=== PATIENT | female | born 1970 | race Caucasian/White ===

== ENCOUNTER → 2022-04-28 13:22 | Outpatient (BNVA) | payer MEDICAID, SELFPAY | PROVIDERS: Visit Provider Internal Medicine Cardiovascular Disease | DX: R00.2 Palpitations (principal); I10 Essential (primary) hypertension; E78.5 Hyperlipidemia, unspecified; F17.200 Nicotine dependence, unspecified, uncomplicated; I25.10 Atherosclerotic heart disease of native coronary artery without angina pectoris; Z86.73 Personal history of transient ischemic attack (TIA), and cerebral infarction without residual deficits | CPT/HCPCS: 93005; 93225; 99204 ==

== ENCOUNTER 2022-09-02 10:30 | Outpatient (CLI) | payer MEDICAID, SELFPAY ==
--- NOTE | 2022-09-02 10:41 | MM_ITS ---
WS: [id number] DIAGNOSTIC BILATERAL DIGITAL BREAST TOMOSYNTHESIS MAMMOGRAPHY WITH CAD LEFT breast ultrasound, limited HISTORY: Follow-up LEFT breast masses. COMPARISON: 03/17/2021, 09/20/2018 TECHNIQUE: Bilateral craniocaudad, mediolateral oblique, and mediolateral views are submitted with to mosynthesis and SM. Spot views LEFT CC and MLO. Computer aided detection utilized. Breast composition: The breasts are heterogeneously dense, which may obscure small masses. Bilateral breast asymmetries are stable. Bilateral benign calcifications. Ultrasound will be performed of the p reviously described nodules in the LEFT breast. LEFT breast ultrasound, limited. At 10:00 no abnormality is identified. No skin thickening or mass. The complex cystic nodule at 6:00 is not identified. There are shadowing calcifications. No masses. MM/[place] [id number] IMPRESSION: BI-RADS: 2-Benign FOLLOW UP: 1 Year Follow-up Return to annual screening mammography. Stable mammography. No ultrasound abnor mality LEFT breast.
== END 2022-09-02 10:31 | disposition home or self-care (01) ==
LOC: RAD 10:31
PROVIDERS: PCP Family Medicine; Visit Provider Family Medicine
DX: N60.02 Solitary cyst of left breast (principal)
CPT/HCPCS: 76642; 77062; G0279

== ENCOUNTER 2022-09-24 07:08 | Outpatient (CLI) | payer MEDICAID, SELFPAY ==
--- NOTE | 2022-09-24 | CT_ITS ---
WS: [id number] CT NECK TECHNIQUE: Contrast-enhanced CT of the neck with coronal and sagittal reformatted images. CLINICAL INFORMATION: DYSPHAGIA COMPARISON: None. DLP: 273.[address] scans at [facility] use at least one of these dose optimization techniques: automated e xposure control; mA and/or kV adjustment per patient size (includes targeted exams where dose is matc hed to clinical indication); or iterative reconstruction. FINDINGS: Normal posterior nasopharynx. Normal parapharyngeal fat. Parotid glands are normal. Normal submandibu lar glands. Tongue base is normal in appearance. Normal palatine tonsils. No evidence of supraglottic or glottic mass. Normal subglottic airway. Mastoid air cells and paranasal sinuses are well aerated. No cervical lymphadenopathy. No other signi ficant findings. CT/CT neck w con* [id number] IMPRESSION: 1. No acute neck findings 2. Normal salivary glands. 3. Normal posterior nasopharynx and parapharyngeal fat. 4. No cervical lymphadenopathy. 5. Partially visualized paranasal sinuses and mastoid air cells are well aerat ed.
[2022-09-24] MEDS: iohexol 350 mg/mL 500 mL Btl (per mL) IV (07:43)
== END 2022-09-24 07:09 | disposition home or self-care (01) ==
PROVIDERS: PCP Family Medicine; Visit Provider Specialist
DX: R13.10 Dysphagia, unspecified (principal)
CPT/HCPCS: 70491; Q9967

== ENCOUNTER 2022-09-28 07:32 | Outpatient (CLI) | payer MEDICAID, SELFPAY ==
--- NOTE | 2022-09-28 07:41 | FL_ITS ---
WS: [id number] MODIFIED BARIUM SWALLOW HISTORY: Other dysphagia FLUOROSCOPY TIME: 1min [id number] # of spot films: 1 Modified barium swallow was performed by the speech pathologist. Fluoroscopy was provided with the pa tient in a lateral projection. Multiple food consistencies were provided. All food consistencies were swallowed without difficulty. No aspiration or laryngeal penetration. Bar ium tablet was also swallowed without difficulty. FL/FL barium swallow modifd [id number] IMPRESSION: No aspiration or laryngeal penetration. Please see speech therapist report also for recommendations.
== END 2022-09-28 07:33 | disposition home or self-care (01) ==
LOC: RAD 07:35
PROVIDERS: PCP Family Medicine; Visit Provider Specialist
DX: R13.10 Dysphagia, unspecified (principal)
CPT/HCPCS: 74230; 92611

== ENCOUNTER 2022-10-07 08:10 | Outpatient (CLI) | payer MEDICAID, SELFPAY ==
--- NOTE | 2022-10-07 08:19 | FL_ITS ---
WS: [id number] FL barium swallow [id number] REASON FOR EXAM: DYSPHAGIA FLUOROSCOPY TIME: 1min [id number] # OF SPOT FILMS: 8 FINDINGS: The swallowing of barium was evaluated in the upright AP and lateral projections and also of the pron e ESTRADA position. Esophagus was evaluated from the oropharynx to the gastric fundus. Multiple rapid sequence spot films were obtained. Oropharynx and cervical esophagus are normal. In the thoracic esophagus there are intermittent tertiary contractions with retention of barium in th e upper thoracic esophagus. No significant reflux identified. Gastroesophageal junction is normal without narrowing or significant hiatal hernia. FL/FL barium swallow [id number] IMPRESSION: Minimal esophageal dysmotility as above.
== END 2022-10-07 08:11 | disposition home or self-care (01) ==
LOC: RAD 08:12
PROVIDERS: PCP Family Medicine; Visit Provider Specialist
DX: R13.10 Dysphagia, unspecified (principal)
CPT/HCPCS: 74220

== ENCOUNTER 2022-12-03 10:31 | Observation (INO) | payer MEDICAID, SELFPAY ==
[2022-12-03] VITALS (20 sets, daily range): BP systolic 78–129; BP diastolic 39–97; PULSE 55–107; RESP 11–26; TEMP 36.8; O2SAT 90–100; BMI 38.2
--- NOTE | 2022-12-03 10:40 | XR_ITS ---
WS: [id number] Portable AP upright chest, 12/03/2022 Clinical Data: dyspnea/cough Comparison: None. Findings: No nodules, masses or effusions are seen. The heart is the upper limits of normal. The pulm onary vascularity is not increased. No pneumonia or pneumothorax is seen. Monitor leads are on the ch est wall. XR/XR chest 1V portable [id number] Impression: Mild cardiomegaly.
--- NOTE | 2022-12-03 10:42 | ED_ITS ---
HPI - General Adult General: Chief complaint: General Medical Stated complaint: LOW BP/ POSSIBLE OVERDOSE Time Seen by Provider: 12/03/22 10:35 Source: patient Mode of arrival: ambulatory History of Present Illness: 52-year-old female presents emergency room with hypotension and bradycardia. She was at home that changed her medications recently she is awake and alert when she arrives here she does not think she took too much of any of her medications she denies any suicidal or suicidality. Onset (ago): minute(s) Severity: mild Relieving factors: none Exacerbating factors: none Associated symptoms: Deny chest pain, confusion, cough, diaphoresis, decreased appetite, dyspnea, fevers/chills, headache(s), malaise, nausea, rash, palpitations, seizures, short of breath, syncope, vomiting or weakness Review of Systems Const: Denies: fever(s), chills, malaise or diaphoresis ENMT: Denies: throat pain, ear or mastoid pain, nasal discharge or nasal congestion Card: Denies: chest pain, palpitations or syncope Resp: Denies: dyspnea GI: Denies: abdominal pain, nausea or vomiting : Denies: flank pain, difficulty voiding, dysuria, urinary frequency or urinary urgency Musc: Denies: neck pain or back pain Skin/Breast: Denies: rash Neuro: Denies: headache(s) or confusion PFSH ED PFSH: Medical History Anxiety Arthritis Asthma CAD (coronary artery disease) Emphysema/COPD Fibromyalgia GERD (gastroesophageal reflux disease) Graves' disease with pretibial myxedema History of cervical cancer History of CVA (cerebrovascular accident) HTN (hypertension) Hyperlipidemia Hyperthyroidism Peripheral neuropathy Smoker Surgical History S/P emergency section S/P lumbar laminectomy S/P tubal ligation Family History Grandmother Myocardial infarction Stroke Hypertension Hyperlipidemia Grandfather Myocardial infarction Hypertension Hyperlipidemia Family/Other Myocardial infarction Stroke Hypertension Hyperlipidemia Father Myocardial infarction Hypertension Hyperlipidemia Mother Stroke Hypertension Hyperlipidemia Sister Stroke Hypertension Hyperlipidemia Social History Smoking and tobacco status: current every day smoker cigarettes Packs smoked per day: 1 Years cigarettes smoked: 25 Physical Exam Const: GENERAL APPEARANCE: cooperative and comfortable ORIENTATION/CONSCIOUSNESS: Yes awake, Yes oriented to person, Yes oriented to place and Yes oriented to time HENMT: COMMON NORMALS: normocephalic, atraumatic and hearing grossly normal bilaterally HEAD & SCALP: normocephalic and atraumatic Resp: COMMON NORMALS: normal respiratory effort, No retractions, No use of accessory muscles and clear to auscultation bilaterally AUSCULTATION: clear to auscultation bilaterally Cardio: COMMON NORMALS: regular rate, regular rhythm and No murmurs present (Cardio) RATE: regular rate RHYTHM: regular rhythm GI: COMMON NORMALS: Soft to palpation and No hepatosplenomegaly present AUSCULTATION: Yes normoactive bowel sounds PALPATION: Yes Soft to palpation, No Tenderness to palpation present (GI), No Guarding due to palpation present (GI) and Yes No hepatosplenomegaly present Extremity: COMMON NORMALS: normal to inspection, capillary refill normal, no clubbing, cyanosis or edema, no calf tenderness and no pedal edema Neuro: SENSORIUM/ORIENTATION: Yes oriented to person, Yes oriented to place and Yes oriented to time Skin: COMMON NORMALS: no rashes or lesions noted GENERAL SKIN EXAM: no rashes or lesions noted Course Vital Signs: Vital signs: Vital Signs Temperature 98.2 F 12/03/22 10:32 Pulse Rate 107 H 12/03/22 14:44 Respiratory Rate 14 12/03/22 11:44 Blood Pressure 112/80 12/03/22 13:42 Pulse Oximetry 100 12/03/22 14:44 Oxygen Delivery Me thod Room Air 12/03/22 14:44 MDM - General Adult Medical Decision Making Patient hypotensive and bradycardic on arrival is not having any chest pain. After fluids her pressure improved but when we tested orthostatics she was still very symptomatic and her pressures dropped into the 90s. She continues to be bradycardic. We will place her on observation. Suspect she will benefit from adjustment of medications. Discussed with hospitalist orders written Medical Records I reviewed the patient's medical records. Lab Data I reviewed the patient's lab results. 12/03/22 11:45 12/03/22 11:45 Radiology Impressions Chest X-Ray 12/03/22 10:40 Impression: Mild cardiomegaly. Laboratory Results WBC 7.2 10^3/uL (4.0-10.0) 12/03/22 11:45 RBC 2.66 10^6/uL (4.1-5.3) L 12/03/22 11:45 Hgb 8.3 g/dL (11.5-15.3) L 12/03/22 11:45 Hct 25.5 % (37.0-47.0) L 12/03/22 11:45 MCV 95.9 fl (81-99) 12/03/22 11:45 MCH 31.2 pg (28.0-34.0) 12/03/22 11:45 MCHC 32.5 g/dL (30.0-36.0) 12/03/22 11:45 RDW 14.1 % (12.1-15.1) 12/03/22 11:45 Plt Count 339 10^3/cmm (130-400) 12/03/22 11:45 MPV 10.6 fL (7.4-10.4) H 12/03/22 11:45 Neut % (Auto) 55.2 % 12/03/22 11:45 Lymph % (Auto) 33.7 % 12/03/22 11:45 [place] % (Auto) 7.6 % 12/03/22 11:45 Eos % (Auto) 2.3 % 12/03/22 11:45 Baso % (Auto) 0.4 % 12/03/22 11:45 Neut # (Auto) 3.99 10^3/uL (1.8-7.7) 12/03/22 11:45 Lymph # (Auto) 2.4 10^3/uL (0.8-4.8) 12/03/22 11:45 [place] # (Auto) 0.6 10^3/uL (0.2-0.9) 12/03/22 11:45 Eos # (Auto) 0.2 10^3/uL (0.0-0.8) 12/03/22 11:45 Baso # (Auto) 0.0 10^3/uL (0.0-0.1) 12/03/22 11:45 Nucleated RBC % (auto) 0 % 12/03/22 11:45 Nucleated RBCs # 0.0 /100WBC 12/03/22 11:45 Sodium 136 mmol/L (136-145) 12/03/22 11:45 Potassium 4.0 mmol/L (3.5-5.1) 12/03/22 11:45 Chloride 105 mmol/L (98-107) 12/03/22 11:45 Carbon Dioxide 19 mmol/L (22-29) L 12/03/22 11:45 Anion Gap 16.0 (5-19) 12/03/22 11:45 BUN 20 mg/dL (6-20) 12/03/22 11:45 Creatinine 1.7 mg/dL (0.5-0.9) H 12/03/22 11:45 GFR Calculation 31.4 mL/min (90-130) L 12/03/22 11:45 Glucose 94 mg/dL (65-115) 12/03/22 11:45 Calculated Osmolality 284 mOsm/kg (285-295) L 12/03/22 11:45 Calcium 8.1 mg/dL (8.5-10.5) L 12/03/22 11:45 Total Bilirubin 0.2 mg/dL (0.15-1.2) 12/03/22 11:45 AST 13 U/L (0-32) 12/03/22 11:45 ALT 10 U/L (0-33) 12/03/22 11:45 Alkaline Phosphatase 55 U/L (35-105) 12/03/22 11:45 Troponin T Baseline 8 ng/L (0-10) 12/03/22 11:45 Total Protein 6.3 g/dL (6.6-8.7) L 12/03/22 11:45 Albumin 3.9 g/dL (3.5-5.2) 12/03/22 11:45 Globulin 2.4 g/dL (1.3-4.6) 12/03/22 11:45 Urine Color Yellow (Yellow) 12/03/22 13:10 Urine Appearance Hazy (CLEAR) A 12/03/22 13:10 Urine pH 6 (5-7) 12/03/22 13:10 Ur Specific [place] 1.005 (1.005-1.030) 12/03/22 13:10 Urine Protein Neg (Negative) 12/03/22 13:10 Urine Glucose (UA) Norm (Normal) 12/03/22 13:10 Urine Ketones Negative (Negative) 12/03/22 13:10 Urine Blood 2+ (Negative) H 12/03/22 13:10 Urine Nitrate Negative (Negative) 12/03/22 13:10 Urine Bilirubin Neg (Negative) 12/03/22 13:10 Urine Urobilinogen Neg mg/dL (Negative) 12/03/22 13:10 Ur Leukocyte Esterase Negative (Negative) 12/03/22 13:10 Urine RBC Rare /hpf (0-2) 12/03/22 13:10 Urine WBC Rare /hpf (0-5) 12/03/22 13:10 Ur Squamous Epith Cells Rare /hpf (0-5) 12/03/22 13:10 Amorphous Sediment Not Reportable 12/03/22 13:10 Urine Bacteria 2+ /hpf (NONE) H 12/03/22 13:10 Urine Yeast Trace /hpf 12/03/22 13:10 Discharge Plan Discharge Patient Disposition: Placed in Observation Admit Provider: Franky Moreno Clinical Impression: Hypotension, Bradycardia Coding Level of Care Code ED Director General for Emre Valentine
--- NOTE | 2022-12-03 10:53 | ECG_ITS ---
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 Measurements Intervals [place] Rate: 58 P: 50 NE: 195 QRS: 45 QRSD: 123 T: 40 QT: 449 QTc: 444 Interpretive Statements SINUS BRADYCARDIA MODERATE INTRAVENTRICULAR CONDUCTION DELAY [110+ ms QRS DURATION] No previous ECG available for comparison Electronically Signed On 12-03-2022 14:02:59 CDT by Lul Culver M.D. [id number]
[2022-12-03] MEDS: sodium chloride 0.9% 1,000 ML 999 ML IV (11:44)
[2022-12-03] MEDS: dexamethasone 10 mg/mL INJ IVP (11:44)
[2022-12-03 11:58] LABS: Basophils % 0.4 %; Eosinophils # 0.2 10^3/uL (0.0-0.8); Eosinophils % 2.3 %; Hematocrit 25.5 % (37.0-47.0); Hemoglobin 8.3 g/dL (11.5-15.3); Lymphocytes # 2.4 10^3/uL (0.8-4.8); Lymphocytes % 33.7 %; Mean Corpuscular HGB Conc 32.5 g/dL (30.0-36.0); Mean Corpuscular Hemoglobin 31.2 pg (28.0-34.0); Mean Corpuscular Volume 95.9 fl (81-99); Mean Platelet Volume 10.6 fL (7.4-10.4); Monocytes # 0.6 10^3/uL (0.2-0.9); Monocytes % 7.6 %; Neutrophils # 3.99 10^3/uL (1.8-7.7); Neutrophils % 55.2 %; Nucleated Red Blood Cells % 0 %; Platelet Count 339 10^3/cmm (130-400); Red Blood Count 2.66 10^6/uL (4.1-5.3); Red Cell Distribution Width 14.1 % (12.1-15.1); White Blood Count 7.2 10^3/uL (4.0-10.0)
[2022-12-03 12:17] LABS: Troponin(5th) Baseline 8 ng/L (0-10)
[2022-12-03 12:22] LABS: Alanine Aminotransferase 10 U/L (0-33); Albumin Level 3.9 g/dL (3.5-5.2); Alkaline Phosphatase 55 U/L (35-105); Aspartate Amino Transferase 13 U/L (0-32); Blood Urea Nitrogen 20 mg/dL (6-20); Calcium 8.1 mg/dL (8.5-10.5); Carbon Dioxide 19 mmol/L (22-29); Chloride 105 mmol/L (98-107); Globulin 2.4 g/dL (1.3-4.6); Glomerular Filtration Rate 31.4 mL/min (90-130); Glucose 94 mg/dL (65-115); Osmolality Calculated 284 mOsm/kg (285-295); Sodium 136 mmol/L (136-145); Total Bilirubin 0.2 mg/dL (0.15-1.2); Total Protein 6.3 g/dL (6.6-8.7)
--- NOTE | 2022-12-03 12:25 | PC.PHAR ---
PT STATES SHE TAKES CARE OF HER OWN MEDICATIONS-PT STATES SHE HASNT STARTED HER REPATHA 140MG [id number] STATES SHE IS WAITING FOR A PA TO GET APPROVED-PT STATES SHE TAKES VITAMIN D2 01653 UNITS Q7D AND VITAMIN D3 1000 UNITS DAILY-PT STATES SHE TAKES PROPRANOLOL 40MG BID EXT MED HISTORY SHOWS LAST FILLED 40MG TID ON 11/27/22 30D/S-NOTES ARE MADE IN THE PHARMACY COMMENTS
--- NOTE | 2022-12-03 12:40 | ECG_ITS ---
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 Measurements Intervals [place] Rate: 50 P: 63 NM: 209 QRS: 35 QRSD: 119 T: 44 QT: 449 QTc: 411 Interpretive Statements SINUS BRADYCARDIA LOW QRS VOLTAGE IN PRECORDIAL LEADS [QRS DEFLECTION < 1.0 mV IN CHEST LEADS] MODERATE INTRAVENTRICULAR CONDUCTION DELAY [110+ ms QRS DURATION] Compared to ECG 12/03/2022 10:53:36 Low QRS voltage now present Electronically Signed On 12-03-2022 14:15:10 CDT by Lul Culver M.D. [id number]
--- NOTE | 2022-12-03 14:04 | PM.HP ---
Providers/Chief Complaint Admitting Physician: Franky Moreno Primary Care Provider: Justice Gomez Chief Complaint: LOW BP/ POSSIBLE OVERDOSE History of Present Illness Freida Dodson is a 52 year old female with a past medical history significant for stroke, hypertension, hyperlipidemia, tobacco use disorder, Graves' disease with history of ablation, fibromyalgia, COPD, back pain, neuropathy, depression, esophageal dysphagia, GERD, coronary artery disease who presents to the emergency department with hypotension and bradycardia. Patient does endorse recent changes to her medications. She has a history of palpitations for which she is on a beta-idania. She is also on antihypertensive. Upon presentation the emergency department patient was found to be hypotensive and bradycardic. She was treated with IV fluids with improvement. Upon assessment, patient states that she is feeling better. She reports that she feels overmedicated. She states this morning her systolic blood pressure was in the 50s. It is oftentimes in the mornings its just over 100. This is before she takes her medications. She denies chest pain, fevers chills, nausea or emesis. She does note that she does not take tramadol anymore either. Review of Systems Narrative: A complete review of systems was obtained and is negative except as stated in HPI. Medications/Allergies Home Medications Medication Instructions Recorded Confirmed Last Taken Type albuterol sulfate 90 mcg/actuation 2 puff inhalation Q6H PRN 04/28/22 12/03/22 Unknown History aerosol inhaler (ProAir HFA) Shortness Of Breath budesonide-formoterol HFA 160 1 inh inhalation BID PRN UNKNOWN 04/28/22 12/03/22 Unknown History mcg-4.5 mcg/actuation aerosol inhaler (Symbicort) ergocalciferol (vitamin D2) 1,250 50,000 unit PO Q7D 04/28/22 12/03/22 12/02/22 History mcg (50,000 unit) capsule fenofibrate nanocrystallized 145 145 mg PO BEDTIME 04/28/22 12/03/22 12/02/22 History mg tablet ibuprofen 800 mg tablet 800 mg PO TID PRN Pain 04/28/22 12/03/22 12/03/22 History ipratropium 20 mcg-albuterol 100 1 puff inhalation QID PRN 04/28/22 12/03/22 Unknown History mcg/actuation mist for inhalation Shortness Of Breath (Combivent Respimat) lamotrigine 100 mg tablet 100 mg PO BEDTIME 04/28/22 12/03/22 12/02/22 History (Lamictal) lisinopril 20 mg tablet 20 mg PO BID 04/28/22 12/03/22 12/02/22 History montelukast 10 mg tablet 10 mg PO BEDTIME 04/28/22 12/03/22 12/02/22 History (Singulair) omeprazole 40 mg capsule,delayed 40 mg PO BEDTIME 04/28/22 12/03/22 12/02/22 History release pregabalin 300 mg capsule (Lyrica) 300 mg PO BID 04/28/22 12/03/22 12/03/22 History tiotropium bromide 2.5 2 puff inhalation DAILY 04/28/22 12/03/22 Unknown History mcg/actuation mist for inhalation (Spiriva Respimat) tizanidine 4 mg tablet 4 mg PO BID 04/28/22 12/03/22 12/03/22 History tramadol 50 mg tablet 50 mg PO BEDTIME 04/28/22 12/03/22 12/03/22 History SEE PHARMACY COMMENT albuterol sulfate 0.63 mg/3 mL 0.63 mg inhalation Q4H PRN 12/03/22 12/03/22 Unknown History solution for nebulization Shortness Of Breath aspirin 81 mg tablet,delayed 243 mg PO QAM 12/03/22 12/03/22 12/02/22 History release cholecalciferol (vitamin D3) 25 25 mcg PO DAILY 12/03/22 12/03/22 Unknown History mcg (1,000 unit) capsule (Vitamin D3) cranberry 400 mg capsule 400 mg PO DAILY 12/03/22 12/03/22 Unknown History cyanocobalamin (vitamin B-12) 1,000 mcg PO QAM 12/03/22 12/03/22 12/03/22 History 1,000 mcg tablet (Vitamin B-12) elderberry fruit 200 mg capsule 200 mg PO BID 12/03/22 12/03/22 12/03/22 History evolocumab 140 mg/mL subcutaneous 140 mg SUBCUT .EVERY 2 WEEKS 12/03/22 12/03/22 Unknown History pen injector (Repathkaterin Geller) hydrochlorothiazide 25 mg tablet 25 mg PO BEDTIME 12/03/22 12/03/22 12/02/22 History levothyroxine 137 mcg tablet 137 mcg PO QAM 12/03/22 12/03/22 12/03/22 History nitroglycerin 0.4 mg sublingual 0.4 mg sublingual Q5M PRN Chest 12/03/22 12/03/22 Unknown History tablet (Nitrostat) Pain potassium gluconate 595 mg (99 mg) 595 mg PO QAM 12/03/22 12/03/22 Unknown History tablet propranolol 40 mg tablet 40 mg PO BID 12/03/22 12/03/22 12/03/22 History SEE PHARMACY COMMENT zinc sulfate-vitamin C 200 mg-100 1 tab PO DAILY 12/03/22 12/03/22 Unknown History mg tablet Allergies Allergy/AdvReac Type Severity Reaction Status Date / Time cephalexin [From Keflex] Allergy Mild ALGY-Rash Verified 10/28/22 09:39 acetaminophen Allergy ALGY-Rash Verified 12/03/22 10:49 choline fenofibrate Allergy ALGY-Rash Verified 12/03/22 10:49 clindamycin Allergy ALGY-Difficulty Verified 12/03/22 10:43 Breathing codeine Allergy Unknown Verified 12/03/22 10:49 diphenhydramine Allergy ALGY-Bliste Verified 12/03/22 10:49 r hydrocodone Allergy Unknown Verified 12/03/22 10:49 lactose Allergy Unknown Verified 12/03/22 12:03 morphine Allergy Unknown Verified 12/03/22 10:49 oxycodone Allergy ALGY-Rash Verified 12/03/22 10:49 Penicillins Allergy Unknown Verified 12/03/22 10:49 Sulfa (Sulfonamide Allergy ALGY-Difficulty Verified 12/03/22 10:43 Antibiotics) Breathing sulfamethoxazole Allergy Unknown Verified 12/03/22 12:03 [From Bactrim] trazodone Allergy Unknown Verified 12/03/22 12:03 trimethoprim [From Bactrim] Allergy Unknown Verified 12/03/22 12:03 PFSH Acute PFSH: Medical History Anxiety Arthritis Asthma CAD (coronary artery disease) Emphysema/COPD Fibromyalgia GERD (gastroesophageal reflux disease) Graves' disease with pretibial myxedema History of cervical cancer History of CVA (cerebrovascular accident) HTN (hypertension) Hyperlipidemia Hyperthyroidism Peripheral neuropathy Smoker Surgical History S/P emergency section S/P lumbar laminectomy S/P tubal ligation Family History Grandmother Myocardial infarction Stroke Hypertension Hyperlipidemia Grandfather Myocardial infarction Hypertension Hyperlipidemia Family/Other Myocardial infarction Stroke Hypertension Hyperlipidemia Father Myocardial infarction Hypertension Hyperlipidemia Mother Stroke Hypertension Hyperlipidemia Sister Stroke Hypertension Hyperlipidemia Social History (Updated 12/03/22 @ 17:59 by Franky Moreno MD) Smoking and tobacco status: current every day smoker cigarettes Packs smoked per day: 1 Years cigarettes smoked: 25 Alcohol intake: never Substance/Drug Use: never Vitals/I&O/Wt Last Vital Signs Temp 98.2 F 12/03/22 10:32 Pulse 55 L 12/03/22 13:28 Resp 14 12/03/22 11:44 BP 112/80 12/03/22 13:42 Pulse Ox 98 12/03/22 10:59 O2 Del Method Room Air 12/03/22 10:59 Physical Exam Narrative: General: Patient is awake and alert. Head: Normocephalic. Atraumatic. EOM intact. Neck: No JVD. Cardiovascular: RRR. No gallops. No murmurs. No peripheral edema. Lungs: Clear to auscultation, no use of accessory muscles, no crackles or wheezes. Skin: No jaundice. No rashes. Abdomen: Normal bowel sounds, abdomen soft and nontender. Genito Urinary: Genital exam not performed since complaints not related. Rectal: Rectal exam not performed since no symptoms indicated blood loss. Extremities: No cyanosis or clubbing. Musculoskeletal: 5/5 strength, normal range of motion, no swollen or erythematous joints. Neurological: Moves all 4 extremities. No myoclonus. Data 12/03/22 11:45 12/03/22 11:45 A&P Assessment and plan (1) Hypotension: Likely medication induced Hold antihypertensives Monitor blood pressure closely Start IV fluids Telemetry monitoring (2) Renal insufficiency: Unknown baseline, suspect JORDANA Fluids ordered Repeat renal function in a.m. (3) Bradycardia: Again, likely medication induced Telemetry monitoring Hold beta-idania, may still benefit from reinitiation of propanolol Review telemetry and vitals in a.m. (4) Intermittent palpitations: Holding propanolol for now Telemetry monitoring (5) Smoker: Would benefit from cessation (6) Hyperlipidemia: Continue aspirin (7) CAD (coronary artery disease): Continue aspirin (8) HTN (hypertension): Hold antihypertensives Plan DVT prophylaxis: CODE STATUS: Full code Attestations Medical Necessity Statement*: Patient presents with hypotension bradycardia likely secondary to overmedication with expected work-up and hospitalization not to cross 2 midnights. Coding Level of Care Code Acute Code for [facility] Diagnoses Hypotension I95.9 Renal insufficiency N28.9 Bradycardia R00.1 Intermittent palpitations R00.2 Smoker F17.200 Hyperlipidemia E78.5 CAD (coronary artery disease) I25.10 HTN (hypertension) I10
[2022-12-03 14:26] LABS: Add Urine Microscopic? YES; Bacteria Urine 2+ /hpf; Bilirubin Urine Neg (Negative); Blood Urine 2+ (Negative); Glucose Urine UA Norm (Normal); Ketones Urine Negative (Negative); Leukocyte Esterase Urine Negative (Negative); Nitrate Urine Negative (Negative); Protein Urine Neg (Negative); RBC Urine RARE /hpf (0-2); Specific Gravity, Urine 1.005 (1.005-1.030); Squamous Epithelial Cell Urine RARE /hpf (0-5); Urine Appearance Hazy (CLEAR); Urine Color Yellow (Yellow); Urobilinogen Urine Neg (Negative); WBC Urine RARE /hpf (0-5); pH Urine 6 (5-7)
[2022-12-03 14:27] LABS: Add Urine Culture? Yes
[2022-12-03 15:11] LABS: Troponin 5 2HR 6.41 ng/L (0-10)
[2022-12-03 15:37] LABS: Troponin 5 2HR Delta 1.59 ABS# (0-10)
--- NOTE | 2022-12-03 17:08 | ECG_ITS ---
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 Measurements Intervals [place] Rate: 64 P: 82 MT: 206 QRS: 52 QRSD: 101 T: 55 QT: 410 QTc: 423 Interpretive Statements SINUS RHYTHM POSSIBLE RIGHT VENTRICULAR CONDUCTION DELAY [RSR (QR) IN V1/V2] Compared to ECG 12/03/2022 13:59:42 Sinus bradycardia no longer present Intraventricular conduction delay no longer present Electronically Signed On 12-04-2022 12:01:44 CDT by Rocky Antony M.D. [id number]
[2022-12-03] MEDS: lactated ringers 1,000 ML 125 ML IV (18:21)
[2022-12-03 19:36] LABS: Troponin 5 6HR Delta -0.41 ng/L (0-12)
--- NOTE | 2022-12-03 21:07 | ECG_ITS ---
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 Measurements Intervals [place] Rate: 92 P: 58 IA: 176 QRS: 34 QRSD: 94 T: -72 QT: 358 QTc: 445 Interpretive Statements SINUS RHYTHM ST DEVIATION AND MODERATE T-WAVE ABNORMALITY, CONSIDER INFERIOR ISCHEMIA [-0.1+ mV T-WAVE IN II/aVF] Compared to ECG 12/03/2022 17:08:21 T-wave abnormality now present Possible ischemia now present Electronically Signed On 12-04-2022 11:58:38 CDT by Rocky Antony M.D. [id number]
[2022-12-03] MEDS: pregabalin 150 mg Capsule 300 MG PO (21:20)
[2022-12-03] MEDS: tizanidine 4 mg Tablet PO (21:20)
[2022-12-03] MEDS: lamoTRIgine 100 mg Tablet PO (21:21)
[2022-12-03] MEDS: pantoprazole DR 40 mg Tablet PO (21:21)
[2022-12-03] MEDS: montelukast sodium 10 mg Tablet PO (21:24)
[2022-12-03 22:20] LABS: Troponin T (5th) Once 6 ng/L (0-10)
[2022-12-04] VITALS (12 sets, daily range): BP systolic 94–125; BP diastolic 54–90; PULSE 78–96; RESP 13–28; TEMP 36.4–36.7; O2SAT 96–99
[2022-12-04] MEDS: lactated ringers 1,000 ML 125 ML IV (01:56)
[2022-12-04] MEDS: acetaminophen 325 mg Tablet 650 MG PO (02:13)
[2022-12-04] MEDS: aspirin 81 mg EC Tablet 243 MG PO (08:25)
[2022-12-04] MEDS: pregabalin 150 mg Capsule 300 MG PO (08:25)
[2022-12-04] MEDS: tizanidine 4 mg Tablet PO (08:25)
[2022-12-04] MEDS: levothyroxine 137 mcg Tablet PO (08:25)
[2022-12-04] MEDS: loperamide 2 mg Capsule 4 MG PO (11:18)
--- NOTE | 2022-12-04 13:00 | PC.NURSE ---
Discharge Note Patient discharged to home via POV accompanied by family. Discharge instructions reviewed with patient and/or nutrition representative. Mobile pharmacy medications and/or prescriptions provided. Belongings/home medications returned.
--- NOTE | 2022-12-08 14:10 | P.DS_ITS ---
Discharge Providers Date of Admission: 12/03/22 17:02 Date of Discharge: December 08, 2022 Attending Provider at Admission: Franky Moreno MD Attending Provider at Discharge: Franky Moreno MD Primary Care Provider: Justice Callahanno Diagnoses at Discharge Discharge Diagnosis (1) Hypotension: Status: Resolved (2) Renal insufficiency: Status: Resolved (3) Bradycardia: Status: Resolved (4) Intermittent palpitations: Status: Acute (5) Smoker: Status: Acute (6) Hyperlipidemia: Status: Acute (7) CAD (coronary artery disease): Status: Acute (8) HTN (hypertension): Status: Acute Reason for Visit Reason for Visit: LOW BP/ POSSIBLE OVERDOSE Hospital Course Hospital Course Freida Dodson is a 52 year old female with a past medical history significant for stroke, hypertension, hyperlipidemia, tobacco use disorder, Graves' disease with history of ablation, fibromyalgia, COPD, back pain, neuropathy, depression, esophageal dysphagia, GERD, coronary artery disease who presents to the emergency department with hypotension and bradycardia secondary to over medication and polypharmacy. Her medications were titrated to obtain desirable blood pressure as per discharge medication reconciliation. Symptoms resolved. Patient discharged to home instable condition. Physical Exam Narrative: General: Patient is awake and alert. Head:? Normocephalic. Atraumatic. EOM intact. Neck: No JVD. Cardiovascular: RRR. No gallops. No murmurs. Lungs: Clear to auscultation, no use of accessory muscles, no crackles or wheezes. Skin: No jaundice. No rashes. Abdomen: Normal bowel sounds, abdomen soft and nontender. Extremities: No cyanosis or clubbing. Neurological: Moves all 4 extremities. No myoclonus. Discharge Data Studies Completed and Pending Completed Studies During Hospitalization Category Date Time Status XR chest 1V portable [id number] Stat Exams 12/03/22 10:40 Completed Radiology Impressions Chest X-Ray 12/03/22 10:40 Impression: Mild cardiomegaly. Laboratory Results WBC 7.2 10^3/uL (4.0-10.0) 12/03/22 11:45 RBC 2.66 10^6/uL (4.1-5.3) L 12/03/22 11:45 Hgb 8.3 g/dL (11.5-15.3) L 12/03/22 11:45 Hct 25.5 % (37.0-47.0) L 12/03/22 11:45 MCV 95.9 fl (81-99) 12/03/22 11:45 MCH 31.2 pg (28.0-34.0) 12/03/22 11:45 MCHC 32.5 g/dL (30.0-36.0) 12/03/22 11:45 RDW 14.1 % (12.1-15.1) 12/03/22 11:45 Plt Count 339 10^3/cmm (130-400) 12/03/22 11:45 MPV 10.6 fL (7.4-10.4) H 12/03/22 11:45 Neut % (Auto) 55.2 % 12/03/22 11:45 Lymph % (Auto) 33.7 % 12/03/22 11:45 [place] % (Auto) 7.6 % 12/03/22 11:45 Eos % (Auto) 2.3 % 12/03/22 11:45 Baso % (Auto) 0.4 % 12/03/22 11:45 Neut # (Auto) 3.99 10^3/uL (1.8-7.7) 12/03/22 11:45 Lymph # (Auto) 2.4 10^3/uL (0.8-4.8) 12/03/22 11:45 [place] # (Auto) 0.6 10^3/uL (0.2-0.9) 12/03/22 11:45 Eos # (Auto) 0.2 10^3/uL (0.0-0.8) 12/03/22 11:45 Baso # (Auto) 0.0 10^3/uL (0.0-0.1) 12/03/22 11:45 Nucleated RBC % (auto) 0 % 12/03/22 11:45 Nucleated RBCs # 0.0 /100WBC 12/03/22 11:45 Sodium 136 mmol/L (136-145) 12/03/22 11:45 Potassium 4.0 mmol/L (3.5-5.1) 12/03/22 11:45 Chloride 105 mmol/L (98-107) 12/03/22 11:45 Carbon Dioxide 19 mmol/L (22-29) L 12/03/22 11:45 Anion Gap 16.0 (5-19) 12/03/22 11:45 BUN 20 mg/dL (6-20) 12/03/22 11:45 Creatinine 1.7 mg/dL (0.5-0.9) H 12/03/22 11:45 GFR Calculation 31.4 mL/min (90-130) L 12/03/22 11:45 Glucose 94 mg/dL (65-115) 12/03/22 11:45 Calculated Osmolality 284 mOsm/kg (285-295) L 12/03/22 11:45 Calcium 8.1 mg/dL (8.5-10.5) L 12/03/22 11:45 Total Bilirubin 0.2 mg/dL (0.15-1.2) 12/03/22 11:45 AST 13 U/L (0-32) 12/03/22 11:45 ALT 10 U/L (0-33) 12/03/22 11:45 Alkaline Phosphatase 55 U/L (35-105) 12/03/22 11:45 Troponin T Gen 5 ng/L 6 ng/L (0-10) 12/03/22 21:46 Troponin T Baseline 8 ng/L (0-10) 12/03/22 11:45 Troponin T 120 Minute 6.41 ng/L (0-10) 12/03/22 14:37 Delta Troponin T 1.59 ABS# (0-10) 12/03/22 14:37 Troponin T Hi Sens 6Hr 6.00 ng/L (0-10) 12/03/22 17:34 Troponin T Hi Sens 6Hr Delta -0.41 ng/L (0-12) L 12/03/22 17:34 Total Protein 6.3 g/dL (6.6-8.7) L 12/03/22 11:45 Albumin 3.9 g/dL (3.5-5.2) 12/03/22 11:45 Globulin 2.4 g/dL (1.3-4.6) 12/03/22 11:45 Urine Color Yellow (Yellow) 12/03/22 13:10 Urine Appearance Hazy (CLEAR) A 12/03/22 13:10 Urine pH 6 (5-7) 12/03/22 13:10 Ur Specific [place] 1.005 (1.005-1.030) 12/03/22 13:10 Urine Protein Neg (Negative) 12/03/22 13:10 Urine Glucose (UA) Norm (Normal) 12/03/22 13:10 Urine Ketones Negative (Negative) 12/03/22 13:10 Urine Blood 2+ (Negative) H 12/03/22 13:10 Urine Nitrate Negative (Negative) 12/03/22 13:10 Urine Bilirubin Neg (Negative) 12/03/22 13:10 Urine Urobilinogen Neg mg/dL (Negative) 12/03/22 13:10 Ur Leukocyte Esterase Negative (Negative) 12/03/22 13:10 Urine RBC Rare /hpf (0-2) 12/03/22 13:10 Urine WBC Rare /hpf (0-5) 12/03/22 13:10 Ur Squamous Epith Cells Rare /hpf (0-5) 12/03/22 13:10 Amorphous Sediment Not Reportable 12/03/22 13:10 Urine Bacteria 2+ /hpf (NONE) H 12/03/22 13:10 Urine Yeast Trace /hpf 12/03/22 13:10 Procedures Performed None Vitals Last Vital Signs Temp 98.1 F 12/04/22 12:03 Pulse 84 12/04/22 12:03 Resp 19 H 12/04/22 12:03 BP 125/90 12/04/22 12:03 Pulse Ox 98 12/04/22 12:03 O2 Del Method Room Air 12/04/22 05:14 Discharge Plan Discharge Patient Disposition: Home Condition: Stable Prescriptions: Continued albuterol sulfate [ProAir HFA] 90 mcg/actuation HFA aerosol inhaler 2 puff inhalation Q6H PRN (Reason: Shortness Of Breath) budesonide-formoterol [Symbicort] 160-4.5 mcg/actuation HFA aerosol inhaler 1 inh inhalation BID PRN (Reason: UNKNOWN) ergocalciferol (vitamin D2) 1,250 mcg (50,000 unit) capsule 50,000 unit PO Q7D Rx Instructions: ON WED fenofibrate nanocrystallized 145 mg tablet 145 mg PO BEDTIME ibuprofen 800 mg tablet 800 mg PO TID PRN (Reason: Pain) Combivent Respimat 20-100 mcg/actuation mist 1 puff inhalation QID PRN (Reason: Shortness Of Breath) lamotrigine [Lamictal] 100 mg tablet 100 mg PO BEDTIME montelukast [Singulair] 10 mg tablet 10 mg PO BEDTIME omeprazole 40 mg capsule,delayed release(DR/EC) 40 mg PO BEDTIME pregabalin [Lyrica] 300 mg capsule 300 mg PO BID Spiriva Respimat 2.5 mcg/actuation mist 2 puff inhalation DAILY tizanidine 4 mg tablet 4 mg PO BID albuterol sulfate 0.63 mg/3 mL solution for nebulization 0.63 mg inhalation Q4H PRN (Reason: Shortness Of Breath) levothyroxine 137 mcg tablet 137 mcg PO QAM Vitamin B-12 1,000 mcg Tablet 1,000 mcg PO QAM aspirin 81 mg Tablet,Delayed Release (Dr/Ec) 243 mg PO QAM zinc sulfate-vitamin C 200-100 mg Tablet 1 tab PO DAILY propranolol 40 mg tablet 40 mg PO BID Nitrostat 0.4 mg Tablet, Sublingual 0.4 mg SUBLINGUAL Q5M PRN (Reason: Chest Pain) Rx Instructions: do not exceed 3 doses per episode cranberry 400 mg Capsule 400 mg PO DAILY Rx Instructions: administer with a meal Vitamin D3 25 mcg (1,000 unit) Capsule 25 mcg PO DAILY elderberry fruit 200 mg Capsule 200 mg PO BID Repatha SureClick 140 mg/mL Pen Injector 140 mg SUBCUT .EVERY 2 WEEKS Rx Instructions: (NOT STARTED OF 12/03/22 WAITING FOR PA FROM INSURANCE PER PT) Changed lisinopril 20 mg tablet 20 mg PO QAM Qty: 30 0RF Discontinued tramadol 50 mg tablet 50 mg PO BEDTIME hydrochlorothiazide 25 mg tablet 25 mg PO BEDTIME potassium gluconate 595 mg (99 mg) Tablet 595 mg PO QAM Discharge Orders: Discharge Order (Routine); Ordered 12/04/22 Ordered By: Franky Moreno Referrals: Justice Gomez [Primary Care Provider] - 1-3 days (You have a hospital follow up appointment with Dr. Gomez on December 08, at 10:00am. If you have any questions or concerns please call the office. ) Discharge Diet: Advance as tolerated, Usual diet and Cardiac Discharge Activity: Resume usual activity and Increase activity as tolerated Patient Instructions: Chest Pain (DC), Opioid Safety Plan of Treatment: 1. Take medications as prescribed. 2. Follow up with PCP. 3. Keep blood pressure log, discussed with patient. Discharge Attestations Time Spent in Discharge Care*: greater than 30 min Quality Metrics Clinical Quality Measures [ No reported AMI, CVA or VTE this stay] Coding Level of Care Code Acute Code for Chg Fwd Diagnoses Hypotension I95.9 Renal insufficiency N28.9 Bradycardia R00.1 Intermittent palpitations R00.2 Smoker F17.200 Hyperlipidemia E78.5 CAD (coronary artery disease) I25.10 HTN (hypertension) I10
== END 2022-12-04 13:00 | disposition home or self-care (01) ==
LOC: ER 13:37 → CSU 17:22
PROVIDERS: Internal Medicine; Admitting Provider Internal Medicine; Emergency Provider Family Medicine; PCP Family Medicine; Visit Provider Internal Medicine
DX: I95.2 Hypotension due to drugs (principal); R00.1 Bradycardia, unspecified; E78.5 Hyperlipidemia, unspecified; J44.9 Chronic obstructive pulmonary disease, unspecified; K21.9 Gastro-esophageal reflux disease without esophagitis; I25.10 Atherosclerotic heart disease of native coronary artery without angina pectoris; Z79.82 Long term (current) use of aspirin; Z86.73 Personal history of transient ischemic attack (TIA), and cerebral infarction without residual deficits; E05.00 Thyrotoxicosis with diffuse goiter without thyrotoxic crisis or storm; G62.9 Polyneuropathy, unspecified; F17.210 Nicotine dependence, cigarettes, uncomplicated; N28.9 Disorder of kidney and ureter, unspecified; I11.9 Hypertensive heart disease without heart failure
CPT/HCPCS: 36415; 71045; 80053; 81001; 84484; 85025; 87086; 93005; 96361; 96374; 96376; 99285; G0378; J1100; J7030; J7120